=== PATIENT | female | born 1985 | race African-American/Black ===

== ENCOUNTER 2019-11-01 00:05 | Emergency (ER) | payer BC ==
[~2019-11-01] VITALS: Ht 162.6 cm; Wt 68.0 kg
[2019-11-01 02:48] LABS: AMP/METHAMP Negative (Negative); BARBITURATES Negative (Negative); BENZODIAZEPINES Negative (Negative); COCAINE Negative (Negative); METHADONE Negative (Negative); OPIATES Negative (Negative); PCP Negative (Negative)
[2019-11-01 03:56] VITALS: BP 112/76
== END 2019-11-01 04:03 | disposition home or self-care (01) ==
LOC: ER 00:05
PROVIDERS: Emergency Medicine
DX: R41.82 Altered mental status, unspecified (principal); T50.905A Adverse effect of unspecified drugs, medicaments and biological substances, initial encounter; R00.2 Palpitations; R45.89 Other symptoms and signs involving emotional state; R68.2 Dry mouth, unspecified; Y92.89 Other specified places as the place of occurrence of the external cause